=== PATIENT | male | born 1990 | race Caucasian/White ===

== ENCOUNTER 2017-08-04 16:15 | Emergency (ER) | payer BC ==
--- NOTE | 2017-08-04 16:48 | ER Document Report ---
ED Medical Screen (RME) - General Chief Complaint: Testicular Pain Stated Complaint: TESTICULAR PAIN Time Seen by Provider: 08/04/17 16:34 Notes: RAPID MEDICAL EVALUATION DISCLOSURE I have seen this patient as part of a Rapid Medical Evaluation and, if applicable, placed any initially appropriate orders. The patient will be seen and fully evaluated, including a full history and physical exam, by a provider ( in Main ED or Fast Track) when a room becomes available. 27-year-old male here with complaints of right testicular pain ongoing for several weeks however has progressively worsened and states today he could not bear the pain anymore so he came here since he does not have a doctor. Pain is worse with sitting. He has not taken anything for the pain. He does not have any nausea vomiting fevers chills dysuria hematuria frequency penile pain/ discharge abdominal pain. - Related Data Allergies/Adverse Reactions: No Known Allergies Allergy (Unverified 08/04/17 16:18) Past Medical History - Social History Chew tobacco use (# tins/day): No Frequency of alcohol use: Occasional Drug Abuse: None Renal/ Medical History: Denies: Hx Peritoneal Dialysis Psychiatric Medical History: Reports: Hx Attention Deficit Hyperactivity Disorder Past Surgical History: Reports: Hx Appendectomy, Hx Genitourinary Surgery - right inguinal hernia, Hx Testicular Surgery - right testicular hernia Physical Exam - Vital signs Vitals: Temp Pulse Resp BP Pulse Ox 98.6 F 84 16 141/96 H 98 08/04/17 16:31 08/04/17 16:31 08/04/17 16:31 08/04/17 16:31 08/04/17 16:31 Course - Vital Signs Vital signs: Temp Pulse Resp BP Pulse Ox 98.6 F 84 16 141/96 H 98 08/04/17 16:31 08/04/17 16:31 08/04/17 16:31 08/04/17 16:31 08/04/17 16:31
[2017-08-04 18:01] LABS: APPEARANCE,URINE SLIGHTLY-CLOUDY; BILIRUBIN,URINE NEGATIVE (NEGATIVE); COLOR,URINE YELLOW; GLUCOSE, URINE NEGATIVE (NEGATIVE); KETONES,URINE NEGATIVE (NEGATIVE); LEUKOCYTE ESTERASE,URINE NEGATIVE (NEGATIVE); NITRITE,URINE NEGATIVE (NEGATIVE); PROTEIN,URINE NEGATIVE (NEGATIVE); URINE SPECIFIC GRAVITY 1.026
--- NOTE | 2017-08-04 18:11 | RADIOLOGY REPORT (SQ) ---
EXAM DESCRIPTION: U/S SCROTUM W/DOPPLER COMPLETED DATE/TIME: 08/04/2017 5:54 pm REASON FOR STUDY: testicular pain; eval torsion COMPARISON: None. TECHNIQUE: Static and realtime wilcox scale imaging of the scrotum and testes. Selected color Doppler and spectral images recorded to document blood flow. LIMITATIONS: None. FINDINGS: RIGHT: TESTICLE: Normal size. Normal echotexture. Normal blood flow. No mass. EPIDIDYMIS: Normal. HYDROCELE OR VARICOCELE: Small hydrocele. No varicocele. HERNIA OR EXTRA-TESTICULAR MASS: No. OTHER: No other significant finding. LEFT: TESTICLE: Normal size. Normal echotexture. Normal blood flow. No mass. EPIDIDYMIS: Heterogeneous in echotexture suggestive of epididymitis. Small epididymal head cyst. HYDROCELE OR VARICOCELE: No. HERNIA OR EXTRA-TESTICULAR MASS: No. OTHER: No other significant finding. IMPRESSION: NORMAL TESTES WITHOUT MASS OR TORSION. HETEROGENEOUS LEFT EPIDIDYMIS COULD REPRESENT EPIDIDYMITIS. TECHNICAL DOCUMENTATION: JOB ID: [id number] [employer]- All Rights Reserved Reading location - IP/workstation name: [email or web address]
--- NOTE | 2017-08-04 18:22 | ER Document Report ---
ED General - General Chief Complaint: Testicular Pain Stated Complaint: TESTICULAR PAIN Time Seen by Provider: 08/04/17 16:34 Mode of Arrival: Ambulatory Information source: Patient Notes: 27-year-old male presents with complaints of right testicular pain worsening over the past week. Patient notes it is an aching sensation denies any fevers or chills denies any urinary complaints denies any drainage from the penis patient has not been sexually active in 2 years - HPI Onset: Last week Onset/Duration: Persistent Quality of pain: Achy Severity: Mild Pain Level: 1 Associated symptoms: Other Exacerbated by: Denies Relieved by: Denies Similar symptoms previously: No Recently seen / treated by doctor: No - Related Data Allergies/Adverse Reactions: No Known Allergies Allergy (Unverified 08/04/17 16:18) Past Medical History - Social History Smoking Status: Current Some Day Smoker Cigarette use (# per day): Yes Chew tobacco use (# tins/day): No Smoking Education Provided: No Frequency of alcohol use: Occasional Drug Abuse: None Family History: Reviewed & Not Pertinent Patient has suicidal ideation: No Patient has homicidal ideation: No Renal/ Medical History: Denies: Hx Peritoneal Dialysis Psychiatric Medical History: Reports: Hx Attention Deficit Hyperactivity Disorder Past Surgical History: Reports: Hx Appendectomy, Hx Genitourinary Surgery - right inguinal hernia, Hx Testicular Surgery - right testicular hernia Review of Systems - Review of Systems Notes: REVIEW OF SYSTEMS: CONSTITUTIONAL : Denies fever, chills, or sweats. Denies recent illness. EENT: Denies eye, ear, throat, or mouth pain or symptoms. Denies nasal or sinus congestion or discharge. Denies throat, tongue, or mouth swelling or difficulty swallowing. CARDIOVASCULAR: Denies chest pain. Denies palpitations or racing or irregular heart beat. Denies ankle edema. RESPIRATORY: Denies cough, cold, or chest congestion. Denies shortness of breath, difficulty breathing, or wheezing. GASTROINTESTINAL: Admits to right testicular pain GENITOURINARY: Denies difficulty urinating, painful urination, burning, frequency, blood in urine, or discharge. MUSCULOSKELETAL: Denies back or neck pain or stiffness. Denies joint pain or swelling. SKIN: Denies rash, lesions or sores. HEMATOLOGIC : Denies easy bruising or bleeding. LYMPHATIC: Denies swollen, enlarged glands. NEUROLOGICAL: Denies confusion or altered mental status. Denies passing out or loss of consciousness. Denies dizziness or lightheadedness. Denies headache. Denies weakness or paralysis or loss of use of either side. Denies problems with gait or speech. Denies sensory loss, numbness, or tingling. Denies seizures. PSYCHIATRIC: Denies anxiety or stress. Denies depression, suicidal ideation, or homicidal ideation. ALL OTHER SYSTEMS REVIEWED AND NEGATIVE. Dictation was performed using [employer] voice recognition software PHYSICAL EXAMINATION: GENERAL: Well-appearing, well-nourished and in no acute distress. HEAD: Atraumatic, normocephalic. EYES: Pupils equal round and reactive to light, extraocular movements intact, sclera anicteric, conjunctiva are normal. ENT: Nares patent, oropharynx clear without exudates. Moist mucous membranes. NECK: Normal range of motion, supple without lymphadenopathy LUNGS: Breath sounds clear to auscultation bilaterally and equal. No wheezes rales or rhonchi. HEART: Regular rate and rhythm without murmurs ABDOMEN: Soft, nontender, nondistended abdomen. No guarding, no rebound. No masses appreciated. Testicular examination notes normal cremaster reflex no erythema no drainage from the penis Musculoskeletal: Normal range of motion, no pitting or edema. No cyanosis. NEUROLOGICAL: Cranial nerves grossly intact. Normal speech, normal gait. Normal sensory, motor exams PSYCH: Normal mood, normal affect. SKIN: Warm, Dry, normal turgor, no rashes or lesions noted. Physical Exam - Vital signs Vitals: Temp Pulse Resp BP Pulse Ox 98.6 F 84 16 141/96 H 98 08/04/17 16:31 08/04/17 16:31 08/04/17 16:31 08/04/17 16:31 08/04/17 16:31 Course - Re-evaluation Re-evalutation: 08/04/17 22:28 Ultrasound was concerning for epididymitis but this was on the left side, patient's pain is on the right, he has no concerns for STD his urinalysis is clear, I will place patient on Levaquin nonetheless and give him urology follow- up. Otherwise patient looks well is in no distress After performing a Medical Screening Examination, I estimate there is LOW risk for ACUTE APPENDICITIS, BOWEL OBSTRUCTION, ACUTE CHOLECYSTITIS, PERFORATED DIVERTICULITIS, INCARCERATED HERNIA, PANCREATITIS, TESTICULAR TORSION or PERFORATED ULCER, thus I consider the discharge disposition reasonable. Also, there is no evidence or peritonitis, sepsis, or toxicity. I have reevaluated this patient multiple times and no significant life threatening changes are noted. The patient and I have discussed the diagnosis and risks, and we agree with discharging home with close follow-up with the understanding that symptoms and presentations can change. We also discussed returning to the Emergency Department immediately if new or worsening symptoms occur. We have discussed the symptoms which are most concerning (e.g., bloody stool, fever, changing or worsening pain, intractable vomiting - standard verbal up date) that necessitate immediate return. - Vital Signs Vital signs: Temp Pulse Resp BP Pulse Ox 98.0 F 84 16 132/76 H 97 08/04/17 18:36 08/04/17 18:36 08/04/17 18:36 08/04/17 18:36 08/04/17 18:36 - Laboratory Laboratory results interpreted by me: 08/04/17 17:45 Urine Urobilinogen 2.0 H - Diagnostic Test Radiology reviewed: Image reviewed - Ultrasound scrotum concerning for left- sided epididymitis, Reports reviewed Discharge - Discharge Clinical Impression: Testicular pain, right Condition: Stable Disposition: HOME, SELF-CARE Instructions: Epididymitis (OM) Prescriptions: Levofloxacin 500 mg PO DAILY #10 tablet Referrals: BOBBY GIFFORD MD [EMANUEL CASTILLO] - Follow up tomorrow
[2017-08-04 18:38] VITALS: BP 132/76
[2017-08-04 19:25] LABS: CHLAM PCR NOT DETECTED (NOT DETECT); GON PCR NOT DETECTED (NOT DETECT)
== END 2017-08-04 18:40 | disposition home or self-care (01) ==
LOC: ER 16:15
DX: N50.811 Right testicular pain (principal); F17.210 Nicotine dependence, cigarettes, uncomplicated
CPT/HCPCS: 76870; 81001; 87491; 87591; 93976; 99284